=== PATIENT | male | born 1935 | race Caucasian/White ===

== ENCOUNTER 2017-02-08 00:03 | Emergency (ER) | payer MEDICARE ==
[~2017-02-08] VITALS: Ht 172.7 cm; Wt 69.9 kg
[2017-02-08 00:20] VITALS: BP 148/77
[2017-02-08 00:52] LABS: BILIRUBIN,URINE NEGATIVE (NEG); GLUCOSE,URINE NEGATIVE (NEG); NITRITE,URINE POSITIVE (NEG); PROTEIN,URINE 30 mg/dL (NEG-TRACE); UROBILINOGEN,URINE 0.2 mg/dL (0.2 mg/dL)
[2017-02-08 01:00] LABS: BACTERIA,URINE MANY /HPF (0-FEW); RBC,URINE 0 /HPF (0-2); SQUAMOUS EPITHELIAL CELL,UR OCC /LPF; WBC,URINE 20-40 /HPF (0-4)
[2017-02-08] MEDS ORDERED: CIPROFLOXACIN HCL 250 MG TABLET. PO ONE (01:15)
[2017-02-08] MEDS ORDERED: HYDROcodone/APAP 5/325MG 1 TAB TABLET PO ONE (01:30)
[2017-02-08] MEDS ORDERED: HYDR-971 PO (01:47)
[2017-02-08] MEDS ORDERED: LEVO500T59 PO (01:47)
--- NOTE | 2017-02-08 01:47 | PHYS DOC ---
Past Medical History Past Medical History: No Pertinent History Past Surgical History: No Surgical History Alcohol Use: Rarely Drug Use: None Adult General Chief Complaint Chief Complaint: BACK INJURY HPI HPI Patient is a 81 year old gentleman presents to the ER today with what appears to be 2 separate problems. Patient reports on Thursday he was lifting up a heavy 26 fL and felt a pop in his lower back. Patient reports he didn't feel too bad that day however and Thursday the pain got much worse and today he reports the pain has gotten worse even still. Patient reports that the pain is intermittent in nature. Patient denies any weakness his upper or lower 70s. Patient denies any loss of bowel or bladder function. Patient has any recent fevers shakes chills nausea vomiting or diarrhea. Patient denies any chest pain or shortness of breath. Patient also is complaining of urgency and dysuria. Patient reports that whenever he has the pain to his lower back he feels a strong need to urinate and he goes and only small amount of urine come out. Patient reports no difficulty or discomfort with his bladder. Patient's ER workup was significant for a LS spine which is unremarkable. There is no evidence of acute fracture. Patient's UA was positive for urinary tract infection. Assessment and plan #1 lower back pain likely secondary to mechanical strain from lifting up a 2600. I will send the patient home with medications to help with this pain including Lortab. #2 urinary tract infection. Patient likely has a prostate infection. I will start the patient on Levaquin. Patient reports that he does have a cellulitis upper arm are he describes it as just abdominal discomfort. Patient has agreed to try the Levaquin once a day and to follow-up with his primary care physician or natural therapist for reevaluation. Review of Systems Review of Systems Constitutional: Denies fever or chills [] Eyes: Denies change in visual acuity, redness, or eye pain [] All other review systems are negative except as documented in the history of present illness portion. Current Medications Current Medications Current Medications Medications (Trade) Dose Ordered Sig/Handy Start Time Stop Time Status Last Admin Dose Admin Acetaminophen/ Hydrocodone Bitart (Lortab 5/325) 1 tab 1X ONCE 02/08/17 01:30 02/08/17 01:31 DC 02/08/17 01:35 1 TAB Ciprofloxacin (Cipro) 500 mg 1X ONCE 02/08/17 01:15 02/08/17 01:26 DC Levofloxacin (Levaquin) 500 mg 1X ONCE 02/08/17 02:00 02/08/17 02:01 02/08/17 01:35 500 MG Allergies Allergies Allergies Coded Allergies Type Severity Reaction Last Updated Verified Cephalosporins Allergy Intermediate 02/08/17 Yes amoxicillin Allergy Intermediate 02/08/17 Yes ciprofloxacin Allergy Intermediate 02/08/17 Yes clindamycin Allergy Intermediate 02/08/17 Yes sulfamethoxazole Allergy Intermediate 02/08/17 Yes trimethoprim Allergy Intermediate 02/08/17 Yes Physical Exam Physical Exam See above. Constitutional: Well developed, well nourished, no acute distress, non-toxic appearance. [] HENT: Normocephalic, atraumatic, bilateral external ears normal, oropharynx moist, no oral exudates, nose normal. [] Eyes: PERRLA, EOMI, conjunctiva normal, no discharge. [] Neck: Normal range of motion, no tenderness, supple, no stridor. [] Cardiovascular:Heart rate regular rhythm, no murmur [] Lungs & Thorax: Bilateral breath sounds clear to auscultation [] Abdomen: Bowel sounds normal, soft, no tenderness, no masses, no pulsatile masses. [] Skin: Warm, dry, no erythema, no rash. [] Back: Tenderness to palpation lower back around the crack of his buttocks. T- spine or L-spine tenderness to palpation. Patient's tenderness is greatest in the sacral Extremities: No tenderness, no cyanosis, no clubbing, ROM intact, no edema. [] Neurologic: Alert and oriented X 3, normal motor function, normal sensory function, no focal deficits noted. [] Psychologic: Affect normal, judgement normal, mood normal. [] Current Patient Data Vital Signs Vital Signs Date Time Temp Pulse Resp B/P (MAP) Pulse Ox O2 Delivery O2 Flow Rate FiO2 02/08/17 00:20 99.4 99 18 98 Room Air 99.4 Lab Values Laboratory Tests Test 02/08/17 00:45 Urine Collection Type Unknown Urine Color Yellow Urine Clarity Cloudy Urine pH 6.0 Urine Specific Woodson 1.025 Urine Protein 30 mg/dL (NEG-TRACE) Urine Glucose (UA) Negative mg/dL (NEG) Urine Ketones (Stick) Trace mg/dL (NEG) Urine Blood Negative (NEG) Urine Nitrite Positive (NEG) Urine Bilirubin Negative (NEG) Urine Urobilinogen Dipstick 0.2 mg/dL (0.2 mg/dL) Urine Leukocyte Esterase Moderate (NEG) Urine RBC 0 /HPF (0-2) Urine WBC 20-40 /HPF (0-4) Urine Squamous Epithelial Cells Occ /LPF Urine Bacteria Many /HPF (0-FEW) Urine Mucus Mod /LPF EKG EKG [] Radiology/Procedures Radiology/Procedures [] Course & Med Decision Making Course & Med Decision Making Pertinent Labs and Imaging studies reviewed. (See chart for details) [] Dragon Disclaimer Dragon Disclaimer This electronic medical record was generated, in whole or in part, using a voice recognition dictation system. Departure Departure Impression: Primary Impression: Urinary tract infection Additional Impression: Low back pain Disposition: HOME, SELF-CARE Condition: IMPROVED Patient Instructions: Low Back Sprain with Rehab-SportsMed, Urinary Tract Infection Additional Instructions: Please make sure he follow up with your family doctor in order to further evaluate your prostate to make sure that he do not have a prostate cancer or tumor. Scripts Hydrocodone/Apap 5-325 (NORCO 5-325 TABLET) 1 Each Tablet 1 TAB PO QID Y for PAIN, #10 TAB Prov: BENITEZ PIÑA MD 02/08/17 Levofloxacin (LEVAQUIN) 500 Mg Tablet 1 TAB PO DAILY, #7 TAB Prov: BENITEZ PIÑA MD 02/08/17 Problem Qualifiers BENITEZ PIÑA MD Feb 08, 2017 01:47
--- NOTE | 2017-02-08 08:13 | RAD ---
EXAM: Lumbar spine 3 views. HISTORY: Low back pain COMPARISON: None. FINDINGS: There is a mild dextrocurvature. Vertebral body heights are maintained, and no fractures are identified. There is diffuse endplate remodeling and ossification of the anterior longitudinal ligament in a pattern consistent with diffuse idiopathic skeletal hyperostosis. Disc heights are maintained. 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 Atherosclerotic calcifications are also noted. IMPRESSION: 1. Relatively mild degenerative changes for patient age. No fracture.
== END 2017-02-08 02:00 | disposition home or self-care (01) ==
LOC: ER 00:03
DX: N39.0 Urinary tract infection, site not specified (principal); M54.5 Low back pain; Z88.1 Allergy status to other antibiotic agents; Z88.2 Allergy status to sulfonamides; Z88.8 Allergy status to other drugs, medicaments and biological substances
CPT/HCPCS: 72100; 81001; 87086; 99285-25

== ENCOUNTER 2017-02-09 03:42 | Emergency (ER) | payer MEDICARE ==
[~2017-02-09] VITALS: Ht 177.8 cm; Wt 69.9 kg
[~2017-02-09 03:42] MED LIST: HYDR-971 PO; LEVO500T59 PO
[2017-02-09 04:00] VITALS: BP 142/79
--- NOTE | 2017-02-09 04:36 | PHYS DOC ---
Past Medical History Past Medical History: No Pertinent History Past Surgical History: No Surgical History Alcohol Use: Rarely Drug Use: None Adult General Chief Complaint Chief Complaint: URINARY FREQUENCY HPI HPI Patient is a 81 year old male who presents with urinary retention. Seen in the ED yesterday for UTI/prostatitis, given prescription for levaquin & has taken 1 dose so far. He states he is only able to urinate a very small volume & also has urgency & hesitancy, as well as burning with urination. Denies previous history of BPH or urinary retention. Denies fevers/chills, nausea/ vomiting, flank pain. He does report suprapubic discomfort. Review of Systems Review of Systems Constitutional: Denies fever or chills Eyes: Denies change in visual acuity HENT: Denies nasal congestion or sore throat Respiratory: Denies cough or shortness of breath Cardiovascular: Denies chest pain or edema GI: Reports suprapubic pain, denies nausea, vomiting, or diarrhea : Reports dysuria & urinary retention. Musculoskeletal: Denies back pain or joint pain Integument: Denies rash or skin lesions Neurologic: Denies headache, focal weakness or sensory changes Allergies Allergies Allergies Coded Allergies Type Severity Reaction Last Updated Verified Cephalosporins Allergy Intermediate 02/08/17 Yes amoxicillin Allergy Intermediate 02/08/17 Yes ciprofloxacin Allergy Intermediate 02/08/17 Yes clindamycin Allergy Intermediate 02/08/17 Yes sulfamethoxazole Allergy Intermediate 02/08/17 Yes trimethoprim Allergy Intermediate 02/08/17 Yes Physical Exam Physical Exam Constitutional: Well developed, well nourished, no acute distress, non-toxic appearance. HENT: Normocephalic, atraumatic, bilateral external ears normal, oropharynx moist, nose normal. Eyes: conjunctiva normal, no discharge. Neck: supple, no stridor. Cardiovascular: RRR, no murmurs, no edema. Lungs & Thorax: LCTAB, no wheezing, no respiratory distress. Abdomen: soft, suprapubic tenderness without rebound/guarding, no masses or pulsatile masses, nondistended. : normal appearing male external genitalia with circumcised penis. Skin: Warm, dry, no erythema, no rash. Back: No CVA tenderness. Extremities: No tenderness, no edema. Neurologic: Alert and oriented X 3, no focal deficits noted. Psychologic: Affect normal, judgement normal, mood normal. Current Patient Data Vital Signs Vital Signs Date Time Temp Pulse Resp B/P (MAP) Pulse Ox O2 Delivery O2 Flow Rate FiO2 02/09/17 04:00 97.6 89 26 142/79 (100) 97 Room Air 97.6 EKG EKG [] Radiology/Procedures Radiology/Procedures [] Course & Med Decision Making Course & Med Decision Making Pertinent Labs and Imaging studies reviewed. (See chart for details) The patient presents with urinary retention in setting of prostatitis. Bladder scan showed post void residual over 500 mL with discomfort. RN placed waddell with output of large amount of clear yellow urine. Provided leg bag. UA from yesterday shows obvious infection. Not repeated on this visit. Urine culture still pending. Encouraged PO hydration, continue antibiotics & pain medication as needed. I had a long conversation regarding drug allergy vs. adverse effect , possible medication reactions, & indications for antibiotics in bacterial infection. He & his exhibit some reluctance for him to continue levaquin & I counseled him that risks of not taking it far outweigh risks of taking it, at least for the recommended duration. He is instructed to follow up with PCP in 2 days, with Goyo Villatoro in the urology clinic in 1 week. Come back for high fever, severe abdominal pain or flank pain, uncontrolled vomiting, any otherwise worsening condition. Discharged home in stable & improved condition. [] Dragon Disclaimer Dragon Disclaimer This electronic medical record was generated, in whole or in part, using a voice recognition dictation system. Departure Departure Impression: Primary Impression: Urinary retention Additional Impressions: Prostatitis Urinary tract infection Disposition: HOME, SELF-CARE Condition: STABLE Referrals: UNKNOWN PCP NAME (PCP) ANTHONY NANCE DO Patient Instructions: Waddell Catheter Care, Adult, Urinary Retention, Acute, Male, [id number] Additional Instructions: You were seen in the emergency department today for urinary retention. A catheter was placed. Please keep in place. Continue to take medication as prescribed by the ER doctor yesterday. Follow-up with Dr. Nance in the urology clinic in one week. Return to the emergency department for high fever, severe abdominal pain or back pain, uncontrolled vomiting, any otherwise worsening condition. Problem Qualifiers PAMELLA ELKINS MD Feb 09, 2017 04:36
== END 2017-02-09 04:44 | disposition home or self-care (01) ==
LOC: ER 03:42
DX: N39.0 Urinary tract infection, site not specified (principal); N41.9 Inflammatory disease of prostate, unspecified; Z88.1 Allergy status to other antibiotic agents; Z88.2 Allergy status to sulfonamides
CPT/HCPCS: 51702; 99284-25

== ENCOUNTER 2017-02-13 11:09 | Emergency (ER) | payer MEDICARE ==
[~2017-02-13] VITALS: Ht 172.7 cm; Wt 69.9 kg
[2017-02-13 11:38] VITALS: BP 147/77
[2017-02-13] MEDS ORDERED: TAMSULOSIN 0.4 MG CAP.ER.24H. PO ONE (12:30)
[2017-02-13] MEDS ORDERED: TAMS0.4C97 PO (13:11)
--- NOTE | 2017-02-13 13:12 | PHYS DOC ---
Past Medical History Past Medical History: UTI Past Surgical History: Other Additional Past Surgical Histo: facial reconstruction Alcohol Use: Rarely Drug Use: None Adult General Chief Complaint Chief Complaint: URINE CATHETER PROBLEM HPI HPI Patient is a 81 year old male who presents today with catheter liking due to spasms. Patient states he had it placed in February 09, 2017. Patient states he has an appointment with his PCP on Thursday next week for possible removal. He states his PCP put him on medicine for bladder spasms. Patient states today he noted he had Increased spasms and his catheter was leaking. Patient also states he is currently on antibiotics for UTI. Patient denies any fever abdominal pain nausea vomiting. Review of Systems Review of Systems Constitutional: Denies fever or chills [] Eyes: Denies change in visual acuity, redness, or eye pain [] HENT: Denies nasal congestion or sore throat [] Respiratory: Denies cough or shortness of breath [] Cardiovascular: No additional information not addressed in HPI [] GI: Denies abdominal pain, nausea, vomiting, bloody stools or diarrhea [] : bladder spasms. Musculoskeletal: Denies back pain or joint pain [] Integument: Denies rash or skin lesions [] Neurologic: Denies headache, focal weakness or sensory changes [] Endocrine: Denies polyuria or polydipsia [] Current Medications Current Medications Current Medications Medications (Trade) Dose Ordered Sig/Handy Start Time Stop Time Status Last Admin Dose Admin Tamsulosin HCl (Flomax) 0.4 mg 1X ONCE 02/13/17 12:30 02/13/17 12:31 DC 02/13/17 12:40 0.4 MG Allergies Allergies Allergies Coded Allergies Type Severity Reaction Last Updated Verified Cephalosporins Allergy Intermediate 02/08/17 Yes amoxicillin Allergy Intermediate 02/08/17 Yes ciprofloxacin Allergy Intermediate 02/08/17 Yes clindamycin Allergy Intermediate 02/08/17 Yes sulfamethoxazole Allergy Intermediate 02/08/17 Yes trimethoprim Allergy Intermediate 02/08/17 Yes Physical Exam Physical Exam Constitutional: Well developed, well nourished, no acute distress, non-toxic appearance. [] HENT: Normocephalic, atraumatic, bilateral external ears normal, oropharynx moist, no oral exudates, nose normal. [] Eyes: PERRLA, EOMI, conjunctiva normal, no discharge. [] Neck: Normal range of motion, no tenderness, supple, no stridor. [] Cardiovascular:Heart rate regular rhythm, no murmur [] Lungs & Thorax: Bilateral breath sounds clear to auscultation [] Abdomen: Bowel sounds normal, soft, no tenderness, no masses, no pulsatile masses. [] Perry in place draining orange appearing urine. Skin: Warm, dry, no erythema, no rash. [] Back: No tenderness, no CVA tenderness. [] Extremities: No tenderness, no cyanosis, no clubbing, ROM intact, no edema. [] Neurologic: Alert and oriented X 3, normal motor function, normal sensory function, no focal deficits noted. [] Psychologic: Affect normal, judgement normal, mood normal. [] Current Patient Data Vital Signs Vital Signs Date Time Temp Pulse Resp B/P (MAP) Pulse Ox O2 Delivery O2 Flow Rate FiO2 02/13/17 11:38 98.2 55 20 96 Room Air 98.2 EKG EKG [] Radiology/Procedures Radiology/Procedures [] Course & Med Decision Making Course & Med Decision Making Pertinent Labs and Imaging studies reviewed. (See chart for details) Patient is in the ED complaining his Perry catheter is leaking. It was placed on February 09, 2017 in our ED for urinary retention. Patient was discharged with antibiotics. He states he has an appointment with his own doctor on Thursday for catheter removal. His catheter was changed in the ED and he was discharged with Flomax. Dragon Disclaimer Dragon Disclaimer This electronic medical record was generated, in whole or in part, using a voice recognition dictation system. Departure Departure Impression: Primary Impression: Perry catheter problem Disposition: HOME, SELF-CARE Condition: STABLE Referrals: UNKNOWN PCP NAME (PCP) ANTHONY VACA DO follow up with your doctor or the urologist provided in 2-3 days Patient Instructions: Perry Catheter Care, Adult Additional Instructions: You were seen for catheter problem. We changed it. Follow up with your doctor or urologist in 2-3 days to have it removed. Scripts Tamsulosin Hcl (FLOMAX) 0.4 Mg Cap.er.24h 1 CAP PO DAILY, #7 CAP 11 Refills Prov: DENIA DEAN MACHINE SILVER STRIPPER 02/13/17 Problem Qualifiers Primary Impression: Perry catheter problem Encounter type: initial encounter Qualified Codes: T83.9XXA - Unspecified complication of genitourinary prosthetic device, implant and graft, initial encounter DENIA DEAN MACHINE SILVER STRIPPER Feb 13, 2017 13:11
== END 2017-02-13 13:17 | disposition home or self-care (01) ==
LOC: ER 11:09
DX: T83.038A Leakage of other urinary catheter, initial encounter (principal); Z88.2 Allergy status to sulfonamides; Z88.1 Allergy status to other antibiotic agents; Y84.6 Urinary catheterization as the cause of abnormal reaction of the patient, or of later complication, without mention of misadventure at the time of the procedure; Y92.89 Other specified places as the place of occurrence of the external cause; Z87.440 Personal history of urinary (tract) infections
CPT/HCPCS: 51702; 99284-25

== ENCOUNTER 2017-10-12 22:15 | Inpatient (IN) | payer OTHER, MEDICARE ==
[~2017-10-12 22:15] MED LIST changes: -HYDR-971 PO; +IV NORMAL SALINE 1000ML BAG 1,000 ML IV; -LEVO500T59 PO
[2017-10-12 22:33] LABS: ADD MAN DIFF? NO
[2017-10-12 22:34] LABS: BASO # 0.1 x10^3/uL (0.0-0.2); BASO % 1 % (0-3); EOS # 0.3 x10^3/uL (0.0-0.7); EOS % 4 % (0-3); HEMATOCRIT 46.5 % (39.0-53.0); LYMPH % 21 % (24-48); MEAN CORPUSCULAR HEMOGLOBIN 34 pg (25-35); MEAN CORPUSCULAR HGB CONC 35 g/dL (31-37); MEAN CORPUSCULAR VOLUME 100 fL (79-100); MONO % 11 % (0-9); NEUT # 5.9 x10^3uL (1.8-7.7); NEUT % 64 % (31-73); PLATELET COUNT 252 x10^3/uL (140-400); RED BLOOD COUNT 4.67 x10^6/uL (4.30-5.70); RED CELL DISTRIBUTION WIDTH 13.2 % (11.5-14.5); WHITE BLOOD COUNT 9.1 x10^3/uL (4.0-11.0)
[2017-10-12 22:45] LABS: ANION GAP 8 (6-14); BLOOD UREA NITROGEN 23 mg/dL (8-26); BUN/CREATININE RATIO 19 (6-20); CALCIUM 9.5 mg/dL (8.5-10.1); CARBON DIOXIDE 27 mmol/L (21-32); CHLORIDE 102 mmol/L (98-107); CREATININE 1.2 mg/dL (0.7-1.3); GFR 58.1; GLUCOSE 147 mg/dL (70-99); POTASSIUM 4.3 mmol/L (3.5-5.1); SODIUM 137 mmol/L (136-145)
[2017-10-12 22:50] LABS: ALBUMIN 3.6 g/dL (3.4-5.0); ALBUMIN/GLOBULIN RATIO 0.9 (1.0-1.7); ALK PHOS 66 U/L (46-116); ALT (SGPT) 43 U/L (16-63); AST (SGOT) 32 U/L (15-37); TOTAL BILIRUBIN 0.2 mg/dL (0.2-1.0); TOTAL PROTEIN 7.6 g/dL (6.4-8.2)
[2017-10-12] MEDS: ASPIRIN CHEWABLE 81 MG TABLET. PO (22:53)
[2017-10-12] MEDS: IV NORMAL SALINE 1000ML BAG 1,000 ML IV (22:54)
[2017-10-12] MEDS ORDERED: CONTRAST GIVEN MC (23:45)
[2017-10-12] MEDS ORDERED: NITROGLYCERIN OINT 1 GM PACKET. (23:51)
[2017-10-13] MEDS: NITROGLYCERIN OINT 1 GM PACKET. TP (00:15)
[2017-10-13] MEDS: MORPHINE SULFATE 2 MG/ML DISP.SYRIN. IV ×3 (01:38→11:15)
[2017-10-13 02:51] LABS: TROPONINI 0.665 ng/mL (0.000-0.055)
[2017-10-13 05:49] LABS: TROPONINI 1.206 ng/mL (0.000-0.055)
[2017-10-13] MEDS ORDERED: LABETALOL 20 MG/4 ML DISP.SYRIN. IVP (08:15)
[2017-10-13 08:56] LABS: ANION GAP 12 (6-14); BLOOD UREA NITROGEN 19 mg/dL (8-26); CARBON DIOXIDE 23 mmol/L (21-32); CHLORIDE 103 mmol/L (98-107); CHOLESTEROL 260 mg/dL (0-200); CREATININE 0.9 mg/dL (0.7-1.3); GLUCOSE 123 mg/dL (70-99); HDLC 43 mg/dL (40-60); LDLC 176 mg/dL (0-100); MAGNESIUM 2.1 mg/dL (1.8-2.4); NON-HDL CHOLESTEROL 217 mg/dL (0-129); POTASSIUM 4.2 mmol/L (3.5-5.1); SODIUM 138 mmol/L (136-145); TRIGLYCERIDES 207 mg/dL (0-150); VLDLC 41 mg/dL (0-40)
[2017-10-13] MEDS: HEPARIN 25,000UTS/500ML PREMIX 500 ML IV (08:57)
[2017-10-13] MEDS: HEPARIN for IV BOLUS 10,000 UNIT/10 ML VIAL. IV (08:57)
[2017-10-13 09:07] LABS: THYROID STIM HORMONE (TSH) 1.477 uIU/mL (0.358-3.74)
[2017-10-13] MEDS ORDERED: LIDOCAINE 2% 20 ML VIAL. (09:51)
[2017-10-13] MEDS ORDERED: IOHEXOL 300 MG/ML 100ML VIAL. (09:51)
[2017-10-13] MEDS: LIDOCAINE 2% 20 ML VIAL. IJ (10:00)
[2017-10-13] MEDS: IOHEXOL 300 MG/ML 100ML VIAL. IART (10:00)
[2017-10-13] MEDS ORDERED: fentaNYL PF VIAL 100 MCG/2 ML VIAL (10:10)
[2017-10-13] MEDS ORDERED: MIDAZOLAM HCL/PF 2 MG/2 ML VIAL. (10:10)
[2017-10-13] MEDS ORDERED: CONTRAST GIVEN MC (10:15)
[2017-10-13] MEDS ORDERED: NITROGLYCERIN 200 MCG/2 ML SYRINGE FOR CATH/VASC LAB. (10:24)
[2017-10-13] MEDS ORDERED: VERAPAMIL 5 MG/2 ML VIAL. (10:24)
[2017-10-13] MEDS ORDERED: HEPARIN for IV BOLUS 10,000 UNIT/10 ML VIAL. (10:24)
[2017-10-13] MEDS ORDERED: CLOPIDOGREL BISULFATE 75 MG TABLET ×2 (10:35→10:36)
[2017-10-13] MEDS ORDERED: BIVALIRUDIN 250 MG VIAL. IV (10:35)
[2017-10-13] MEDS ORDERED: ASPIRIN 325 MG TABLET (10:35)
[2017-10-13] MEDS: MIDAZOLAM HCL/PF 2 MG/2 ML VIAL. IV (10:55)
[2017-10-13] MEDS: fentaNYL PF VIAL 100 MCG/2 ML VIAL IV (10:55)
[2017-10-13] MEDS: HEPARIN for IV BOLUS 10,000 UNIT/10 ML VIAL. IART (10:56)
[2017-10-13] MEDS: IOHEXOL 300 MG/ML 100ML VIAL. IV (10:57)
[2017-10-13] MEDS: VERAPAMIL 5 MG/2 ML VIAL. IART (10:58)
[2017-10-13] MEDS: NITROGLYCERIN 200 MCG/2 ML SYRINGE FOR CATH/VASC LAB. IART (10:58)
[2017-10-13] MEDS: IV 1/2 NORMAL SALINE 1,000 ML IV (11:41)
[2017-10-13 15:14] LABS: UNFRACTIONATED HEPARIN TESTING 0.54 IU/mL (0.30-0.70)
[2017-10-13] MEDS: ENOXAPARIN 40 MG/0.4 ML SYRINGE. SQ (15:30)
[2017-10-13] MEDS ORDERED: ENOXAPARIN 40 MG/0.4 ML SYRINGE. SQ (15:30)
[2017-10-13] MEDS: ATORVASTATIN CALCIUM 40 MG TABLET. PO (20:30)
[2017-10-13] MEDS ORDERED: ATORVASTATIN CALCIUM 20 MG TABLET PO (21:00)
[2017-10-14] MEDS: IV 1/2 NORMAL SALINE 1,000 ML IV ×2 (05:39→14:52)
[2017-10-14] MEDS: ANTI-COAG MONITOR BY PHARMACY. MC (09:49)
[2017-10-14] MEDS ORDERED: IODIXANOL 320 MG/ML 100 ML VIAL. (10:28)
[2017-10-14] MEDS ORDERED: LIDOCAINE 2% 20 ML VIAL. (10:28)
[2017-10-14] MEDS ORDERED: MIDAZOLAM HCL/PF 2 MG/2 ML VIAL. ×2 (10:51→11:34)
[2017-10-14] MEDS ORDERED: fentaNYL PF VIAL 100 MCG/2 ML VIAL ×3 (10:52→13:09)
[2017-10-14] MEDS ORDERED: HEPARIN for IV BOLUS 10,000 UNIT/10 ML VIAL. IV (11:00)
[2017-10-14] MEDS ORDERED: BIVALIRUDIN 250 MG VIAL. IV ×2 (11:02→11:52)
[2017-10-14] MEDS ORDERED: CONTRAST GIVEN MC (11:30)
[2017-10-14] MEDS ORDERED: NALOXONE 0.4 MG/ML VIAL. (11:46)
[2017-10-14] MEDS ORDERED: FLUMAZENIL 0.5 MG/5 ML VIAL. IV (11:46)
[2017-10-14] MEDS: NITROGLYCERIN 200 MCG/2 ML SYRINGE FOR CATH/VASC LAB. IART (13:19)
[2017-10-14] MEDS: BIVALIRUDIN 250 MG VIAL. IV (13:23)
[2017-10-14] MEDS: MIDAZOLAM HCL/PF 2 MG/2 ML VIAL. IV (13:23)
[2017-10-14] MEDS: fentaNYL PF VIAL 100 MCG/2 ML VIAL IV ×2 (13:31→15:21)
[2017-10-14] MEDS: IODIXANOL 320 MG/ML 100 ML VIAL. IART (13:32)
[2017-10-14] MEDS: LIDOCAINE 2% 20 ML VIAL. IJ (13:33)
[2017-10-14] MEDS ORDERED: ASPIRIN 325 MG TABLET (13:36)
[2017-10-14] MEDS ORDERED: CLOPIDOGREL BISULFATE 75 MG TABLET (13:36)
[2017-10-14] MEDS: ASPIRIN 325 MG TABLET PO (13:45)
[2017-10-14] MEDS: CLOPIDOGREL BISULFATE 75 MG TABLET PO (13:45)
[2017-10-14] MEDS: SIMETHICONE 80 MG TAB.CHEW PO (14:55)
[2017-10-14] MEDS: ALPRAZolam 0.5 MG TABLET PO (15:08)
[2017-10-14] MEDS: HYDROcodone/APAP 5/325MG 1 TAB TABLET PO (15:31)
[2017-10-14] MEDS: MORPHINE SULFATE 4 MG/ML DISP.SYRIN. IV (15:49)
[2017-10-14] MEDS: ATORVASTATIN CALCIUM 40 MG TABLET. PO (21:04)
[2017-10-15] MEDS: IV 1/2 NORMAL SALINE 1,000 ML IV ×3 (01:08→11:23)
[2017-10-15] MEDS: HYDROcodone/APAP 5/325MG 1 TAB TABLET PO (02:37)
[2017-10-15] MEDS: PANTOPRAZOLE IV PUSH 40 MG VIAL. IVP (07:30)
[2017-10-15] MEDS: ASPIRIN ENTERIC COATED 325 MG TABLET.DR. PO (09:36)
[2017-10-15] MEDS: CLOPIDOGREL BISULFATE 75 MG TABLET PO (09:36)
[2017-10-15] MEDS: METOPROLOL TART IMMED RELEASE 25 MG TABLET. PO (11:22)
[2017-10-15 16:19] LABS: MRSA BY PCR Negative (Negative)
== END 2017-10-15 16:56 | disposition home or self-care (01) | DRG 215 ==
LOC: ER 22:15 → 1 WEST ICU 10-14 12:59 → 2 SOUTH 23:22
PROC: 4A023N7 Measurement of Cardiac Sampling and Pressure, Left Heart, Percutaneous Approach (ICD-10-PCS; principal; 2017-10-13)
PROC: B2111ZZ Fluoroscopy of Multiple Coronary Arteries using Low Osmolar Contrast (ICD-10-PCS; 2017-10-13)
PROC: 02HA3RZ Insertion of Short-term External Heart Assist System into Heart, Percutaneous Approach (ICD-10-PCS; 2017-10-13)
PROC: 027236Z Dilation of Coronary Artery, Three Arteries with Three Drug-eluting Intraluminal Devices, Percutaneous Approach (ICD-10-PCS; 2017-10-13)
PROC: 5A0221D Assistance with Cardiac Output using Impeller Pump, Continuous (ICD-10-PCS; 2017-10-13)
DX: I21.3 ST elevation (STEMI) myocardial infarction of unspecified site (principal); I50.41 Acute combined systolic (congestive) and diastolic (congestive) heart failure; T82.855A Stenosis of coronary artery stent, initial encounter; Z95.1 Presence of aortocoronary bypass graft; I13.0 Hypertensive heart and chronic kidney disease with heart failure and stage 1 through stage 4 chronic kidney disease, or unspecified chronic kidney disease; I24.9 Acute ischemic heart disease, unspecified; E78.5 Hyperlipidemia, unspecified; N18.9 Chronic kidney disease, unspecified; F41.9 Anxiety disorder, unspecified; I25.10 Atherosclerotic heart disease of native coronary artery without angina pectoris; Y83.1 Surgical operation with implant of artificial internal device as the cause of abnormal reaction of the patient, or of later complication, without mention of misadventure at the time of the procedure; M19.90 Unspecified osteoarthritis, unspecified site; I25.2 Old myocardial infarction; Z82.3 Family history of stroke
CPT/HCPCS: 36415; 71045; 71275; 74174; 80048; 80053; 80061; 83735; 84443; 84484; 85025; 85520; 87641; 92928; 93005; 93306; 93458; 96360; 99152; 99153; 99285; 99285-25; C1725; C1769; C1771; C1874; C1887; C1892; G0269; J0583; J1644; J2250; J2270; J3010; J3490; J7030; Q9967

== ENCOUNTER → 2018-06-14 | Outpatient (CLI) | payer OTHER ==
[2017-10-15 12:00] VITALS: BP 107/57
[~2018-06-14] MED LIST changes: +CLOP75TA PO; +HYDR-2758 PO; +HYDR-971 PO; -IV NORMAL SALINE 1000ML BAG 1,000 ML IV; +LEVO500T59 PO; +METO25TA4 PO; +TAMS0.4C97 PO
--- NOTE | 2018-06-14 18:03 | KCIC ---
Bilateral ankle-brachial indices 06/14/2018 CLINICAL HISTORY: Hypertension. Peripheral vascular disease. TECHNIQUE: Systolic blood pressures of both arms and ankles were obtained. Ratios were generated bilaterally for ankle-brachial indices. FINDINGS: The right ankle-brachial index is 1.08. The left is 1.10. These are normal. IMPRESSION: Normal bilateral ankle-brachial indices. Electronically signed by: Anand Garcia MD (06/14/2018 6:00 PM) [id number]
== END | disposition home or self-care (01) ==
LOC: KCIC US 14:48
PROVIDERS: ATTEND Family Medicine
DX: I73.9 Peripheral vascular disease, unspecified (principal); I10 Essential (primary) hypertension
CPT/HCPCS: 93922

== ENCOUNTER → 2019-06-10 | Outpatient (CLI) | payer OTHER ==
[2017-10-15 12:00] VITALS: BP 107/57
[~2019-06-10] MED LIST changes: -HYDR-2758 PO; +HYDR-2761 PO; +HYDR-3164 PO; -HYDR-971 PO
--- NOTE | 2019-06-10 16:24 | KCIC ---
STUDY: MRI of the left knee without contrast INDICATION: Left knee pain and instability. COMPARISON: None. TECHNIQUE: Multiplanar MR imaging of the left knee performed without the use of intravenous or intra-articular contrast. FINDINGS: Menisci: Areas of maceration involving the lateral meniscus such as at the body segment as well as extending to involve the posterior body/horn junction and the posterior root. There appears to be some displaced meniscal tissue along the joint line into the meniscotibial recess, image 13 series 7. The anterior horn is diminutive in caliber extending into a transverse intrameniscal ligament. Complex tearing/maceration of the medial meniscus posterior horn and root as well as oblique undersurface tearing through the body. Prominent, complex parameniscal cyst seen at the anterior aspect of the tibia, image 9 series 5 measuring up to 1 cm. Cruciate ligaments: The PCL is intact but with degenerative internal signal. The ACL is seen proximally but becomes severely diminutive approaching the tibial attachment. Collateral ligaments: No findings to suggest acute injury of the medial or lateral collateral ligaments. Tendons: Proximal patellar tendinosis. Popliteus tendinosis. Distal semimembranosus tendinosis. Cartilage: Patellofemoral: No full-thickness defect. Lateral compartment: Areas of chondral thinning and partial thickness chondrosis such as at the periphery of the weightbearing aspect. Medial compartment: Focal chondral delamination at the proximal nonweightbearing aspect of the medial femoral condyle with trace subchondral cystic change, image 17 series 5. Additional areas of partial thickness chondrosis with subchondral cystic change more posteriorly at the nonweightbearing aspect, image 19 series 5 Bones: No acute fracture. Miscellaneous: Moderate volume knee joint effusion with synovitis. Moderate-sized Galeana's cyst. Mild focal fatty infiltration at the distal semimembranosus. IMPRESSION: 1. As detailed above, severe complex tearing of both the medial and lateral menisci with areas of maceration. There appears to be some displaced meniscal tissue into the lateral meniscotibial recess, image 13 series 7, as well as a prominent complex parameniscal cyst at the anterior aspect of the tibia measuring up to 1 cm. 2. Essentially absent visualization of the ACL approaching its femoral insertion concerning for a complete tear. The absence of surrounding marrow contusion suggests this to represent a chronic finding. 3. Despite the degree of meniscal injury and patient age, chondrosis at the lateral and medial compartments is relatively mild the collectively more pronounced medially and at the posterior nonweightbearing aspect. Electronically signed by: NOA BROWER MD (06/10/2019 4:21 PM) [id number]
== END | disposition home or self-care (01) ==
LOC: KCIC MRI 11:25
PROVIDERS: ATTEND Family Medicine
DX: S83.282A Other tear of lateral meniscus, current injury, left knee, initial encounter (principal); S83.242A Other tear of medial meniscus, current injury, left knee, initial encounter; M71.22 Synovial cyst of popliteal space [Baker], left knee; M25.462 Effusion, left knee; X58.XXXA Exposure to other specified factors, initial encounter; Y93.89 Activity, other specified; Y92.89 Other specified places as the place of occurrence of the external cause; Y99.8 Other external cause status
CPT/HCPCS: 73721